=== PATIENT | female | born 1955 | race Caucasian/White ===

== ENCOUNTER → 2016-05-14 | Outpatient (CLI) | payer BC ==
[~2016-05-14] MED LIST: ALBUAER2 INH; AMLO-110 PO; ATOR-22 PO; BIOT1CAP8 PO; CALC600T9 PO; CLTP PO; GLUCTAB7 PO; LEVA45AE INH; LOSA100T26 PO; MULTTAB58 PO; NAPR-998 PO; NAPR1TAB9 PO; SYMBICORT; SYMIN160 INH; [UNRECOGNIZED DRUG - CODE] NAE
--- NOTE | 2016-05-15 17:13 | MAMMOGRAPHY REPORT ---
BILATERAL DIGITAL SCREENING MAMMOGRAM TOMOSYNTHESIS WITH CAD: 05/14/2016 CLINICAL HISTORY: Routine screening. Patient has no complaints. TECHNIQUE: Breast tomosynthesis in addition to standard 2D mammography was performed. Current study was also evaluated with a Computer Aided Detection (CAD) system. COMPARISON: Comparison is made to exams dated: 05/12/2015 mammogram, 11/09/2009 mammogram, 05/10/2014 kristen mogram, 05/23/2010 ultrasound, 11/09/2009 ultrasound - [facility], and 11/14/2008. BREAST COMPOSITION: There are scattered areas of fibroglandular density in both breasts. FINDINGS: There is a 7 mm mass with possible associated faint microcalcification in the 12:00 anter ior left breast, for which additional spot magnification views and targeted ultrasound are recommend ed. There is a stable metallic biopsy marker in the upper outer anterior right breast. Stable nodularit y in the lower inner quadrant of the right breast. No other suspicious mass, architectural distorti on or cluster of microcalcifications is seen. IMPRESSION: ACR BI-RADS CATEGORY 0: INCOMPLETE EVALUATION: NEED ADDITIONAL IMAGING EVALUATION The 7 mm mass with possible associated microcalcification in the 12:00 left breast needs additional evaluation. The patient will be called to schedule an appointment. Approximately 10% of breast cancers are not detected with mammography. A negative mammographic repor t should not delay biopsy if a clinically suggestive mass is present. Waleska Mancini M.D. ay/:05/15/2016 15:51:05 Accounting Reconciliation Clerk: Nani GUTIERREZ(Mc)(Kera), [facility] letter sent: Addl Imaging 0 BI-RADS Code: ACR BI-RADS Category 0: Incomplete Evaluation: Need Additional Imaging Evaluation
== END | disposition home or self-care (01) ==
LOC: C.MAMM 09:36
PROVIDERS: ATTEND Internal Medicine Pulmonary Disease
DX: Z12.31 Encounter for screening mammogram for malignant neoplasm of breast (principal); N63 Unspecified lump in breast

== ENCOUNTER → 2016-05-29 | Outpatient (CLI) | payer BC ==
--- NOTE | 2016-05-29 15:34 | MAMMOGRAPHY REPORT ---
UNILATERAL LEFT DIGITAL DIAGNOSTIC MAMMOGRAM AND TARGETED LEFT ULTRASOUND: 05/29/2016 CLINICAL HISTORY: 61-year-old woman called back from screening mammography for a 7 mm mass with poss ible associated faint microcalcifications in the 12:00 left breast. TECHNIQUE: Spot magnification left CC and ML views were obtained. COMPARISON: Comparison is made to exams dated: 05/14/2016 mammogram, 05/12/2015 mammogram, and 11/09/2009 mammogram - [facility]. BREAST COMPOSITION: There are scattered areas of fibroglandular density in the left breast. FINDINGS: On the spot magnification views of the left breast, there is persistence of a lobulated 3 .5 x 6.4 x 6.8 mm mass. The possible faint associated microcalcifications are less conspicuous on t he spot magnification views and could represent milk of calcium within a cyst. Further characteriza tion with ultrasound was performed. There is no associated architectural distortion. No other susp icious mass or suspicious microcalcifications are identified. Real-time high-resolution sonographic evaluation was performed in the 11:00 through 1:00 axes of the left breast. In the 11:30 breast, 2 cm from the nipple, there is a mixed anechoic and isoechoic ma ss, subtly representing an intraductal or intracystic mass. Total measurements of the solid and cys tic component measured 3.4 x 1.8 x 3.7 mm and this is thought to correlate with the mammographic mas s. It is indeterminate, warranting further evaluation with tissue sampling. Incidental note is mad e of an anechoic benign simple cyst in the 11:00 left breast, 3 cm from the nipple, measuring 3.7 mm . IMPRESSION: ACR BI-RADS CATEGORY 4: SUSPICIOUS, TARGETED ULTRASOUND ACR BI-RADS CATEGORY 4: SUSPICI OUS 1. Ultrasound guided core biopsy is recommended for an indeterminate solid and cystic 3.7 mm mass i n the 11:30 left breast, 2 cm from the nipple, that is thought to correlate with the recently descri bed mammographic mass. The possible associated microcalcifications are less conspicuous on the spot magnification views and could represent milk of calcium within the cystic component. These results and recommendations were discussed with the patient at the time of the exam. She tent atively scheduled the left breast ultrasound guided core biopsy prior to leaving our department. Approximately 10% of breast cancers are not detected with mammography. A negative mammographic repor t should not delay biopsy if a clinically suggestive mass is present. Waleska Mancini M.D. ay/:05/29/2016 14:33:36 Revenue Specialist: Henrietta LU)(Kera), [facility] letter sent: Abnormal 4/5 BI-RADS Code: ACR BI-RADS Category 4: Suspicious Ultrasound BI-RADS: ACR BI-RADS Category 4: Suspic ious
== END | disposition home or self-care (01) ==
LOC: C.MAMM 13:21
PROVIDERS: ATTEND Internal Medicine Pulmonary Disease
DX: N63 Unspecified lump in breast (principal)

== ENCOUNTER → 2016-06-07 | Outpatient (CLI) | payer BC ==
--- NOTE | 2016-06-07 09:30 | Discharge Instructions ---
Discharge Instructions Procedure Procedure Date: Jun 07, 2016. Reason for visit: Left Mass. Discharge Discharge Date: Jun 07, 2016. Discharge Diagnosis: status post breast biopsy Instructions Activity Recommendations: Additional Limitations (see below) Return to School/Work: no limitations Recommended Home Diet: No Limitations Provider Instructions: ACTIVITY RECOMMENDATIONS: * No lifting, pushing, pulling or exercising the affected side for three days. RETURN TO SCHOOL/WORK: * You may return to work/school after the procedure, but do not perform any strenuous activities for 24 to 48 hours. MEDICATIONS: * Tylenol (two 325 mg) every four to six hours if needed for mild pain (if not allergic to Tylenol). DIET: * Resume previous diet. SPECIAL CARE INSTRUCTIONS: * Keep biopsy site dry for 24 hours. May shower after 24 hours, but do not soak (bathe) incision. * May remove Tegaderm (plastic patch) tomorrow AFTER showering. * Leave the steri-strips on for one week. Allow the steri-strips to fall off by themselves. If not off after one week, you may remove them. You may place a Bandaid crosswise over the strips, if desired. * Apply ice 10 minutes on and 10 minutes off as needed. * Wear a bra at bedtime to sleep more comfortably for 2-3 days. * Your referring physician should have the results after approximately 5 to 7 business days. * Call for unusual bleeding, fever, drainage, etc or if you have any questions call during normal business hours or after hours call Dr Campuzano, [phone]. FOLLOW UP VISIT: Follow-up with Referring Physician as scheduled. Allergies Coded Allergies: No Known Allergies (Verified , NO, 06/12/11) Mono Mathews Recommendations: Call your doctor if: * Temperature above 101 degrees * Pain not relieved by pain medicine ordered * There is increased drainage or redness from any incision * You have any unanswered questions or concerns. Your Doctors Instructions noted above were prepared by provider Aurea Campuzano. Patient Signature Section: Patient Instructions Signature Page Claudette Mcmahon Patient (or Guardian) Signature/Date: I have read and understand the instructions given to me by my caregivers. Caregiver/RN/Doctor Signature/Date: The above-named patient and/or guardian has received patient instructions on this date. + Original Patient Signature Page (only) stays with chart. Please make copy for patient.
--- NOTE | 2016-06-10 13:48 | MAMMOGRAPHY REPORT ---
ULTRASOUND GUIDED BIOPSY LEFT BREAST: 06/07/2016 CLINICAL HISTORY: Left 11:30 breast mass. PATIENT CONSENT: The procedure, risks and benefits were discussed with the patient and informed writ ten consent was obtained. A timeout was performed immediately prior to the procedure. PROCEDURE DESCRIPTION: Preprocedural ultrasound demonstrates a small benign 3 mm cyst in the left breast at 11:30, 2 cm fro m the nipple, as well as a persistent benign cyst in the left breast at 11:30, 3 cm from the nipple. The mixed cystic and solid mass in the left breast at 12:00, 2 cm from the nipple persists (previo usly labeled left breast 11:30, 2 cm from the nipple). With ultrasound guidance, aseptic technique, and lidocaine as the local anesthetic (1% lidocaine to anesthetize the skin and 1% lidocaine with epinephrine to anesthetize the deeper tissues), an attemp t was made to aspirate the mass, however, it did not completely aspirate therefore the decision was made to biopsy the residual hypoechoic component. With ultrasound guidance, aseptic technique, and lidocaine as the local anesthetic (1% lidocaine to anesthetize the skin and 1% lidocaine with epinephrine to anesthetize the deeper tissues), the mass of concern in the left breast at 12:00 was sampled 3 times with a 14-gauge Achieve biopsy needle. D irect pressure was applied to the site immediately post procedure and hemostasis was achieved. Imme diately thereafter, with ultrasound guidance, aseptic technique, and lidocaine as the local anesthet ic, a metallic localizer clip was placed centrally in the mass. Direct pressure was applied to the site immediately post procedure and hemostasis was achieved. Pos tprocedure unilateral mammograms were performed to confirm placement of the clip in the expected loc ation of the breast mass. The patient tolerated the procedure without complication. She was given wound care instructions. The specimens were sent to pathology for analysis. COMPARISON: Comparison is made to exams dated: 05/29/2016 ultrasound, 05/29/2016 mammogram, 05/14/2016 mammogram, 05/12/2015 mammogram, 05/10/2014 mammogram, and 05/23/2010 mammogram - [facility] [address] [place] oshea. IMPRESSION: ULTRASOUND GUIDED BIOPSY Ultrasound guided core needle biopsy of the left 12:00 breast mass, with clip placement. The patien t will receive pathology results from her referring provider. Aurea Campuzano M.D. ah/:06/07/2016 09:39:07 Instructor Modeling: Chanda LU)(M), [facility]
--- NOTE | 2016-06-10 13:48 | MAMMOGRAPHY REPORT ---
UNILATERAL LEFT DIGITAL DIAGNOSTIC MAMMOGRAM: 06/07/2016 CLINICAL HISTORY: Status post ultrasound guided biopsy of the left 12:00 breast mass. TECHNIQUE: Postprocedural left CC and MLO views were obtained. COMPARISON: Comparison is made to exams dated: 05/29/2016 mammogram, 05/14/2016 mammogram, 05/12/2015 ma mmogram, and 05/10/2014 mammogram - [facility]. BREAST COMPOSITION: There are scattered areas of fibroglandular density in the left breast. FINDINGS: A new biopsy marker clip is seen within the left breast status post ultrasound-guided bio psy of the left 12 o'clock breast mass. The biopsy clip is located lateral and anterior to the prev iously described mammographic mass indicating that the biopsied mass does not correlate with the kristen mographic mass. However, a benign cyst was seen in the left breast at 11:30, 3 cm from the nipple, medial to the biopsied mass, which is approximately the same size and shape of the mammographic mass , and likely corresponds with the mammographic mass. Recommend short interval follow-up in 3 months to confirm stability. IMPRESSION: ACR-BI-RADS CATEGORY 3: PROBABLY BENIGN The biopsied mass does not correlate with the initial mammographic mass. However, a benign-appearin g cyst was seen in the left breast at 11:30, which likely corresponds with the mammographic mass. R ecommend follow-up diagnostic mammograms and ultrasound of the left breast in 3 months to reevaluate . The patient was verbally notified of the results. Approximately 10% of breast cancers are not detected with mammography. A negative mammographic repor t should not delay biopsy if a clinically suggestive mass is present. Aurea Campuzano M.D. ah/:06/07/2016 09:59:31 Certified Peer Specialist: Chanda GUTIERREZ(Mc)(Kera), [facility] BI-RADS Code: ACR-BI-RADS Category 3: Probably Benign
== END | disposition home or self-care (01) ==
LOC: C.MAMM 08:53
PROVIDERS: ATTEND Internal Medicine Pulmonary Disease
DX: N63 Unspecified lump in breast (principal)

== ENCOUNTER → 2016-08-05 | Outpatient (CLI) | payer BC ==
[~2016-08-05] MED LIST changes: -LOSA100T26 PO; +LOSA100T33 PO
[2016-08-05 14:41] LABS: HEMATOCRIT 44.2 % (37-47); MEAN CELL VOLUME 91.1 fL (80-100); MEAN CORPUSCULAR HEMOGLOBIN 29.5 pg (25-34); MEAN CORPUSCULAR HGB CONC 32.4 g/dl (32-36); MEAN PLATELET VOLUME 12.3 fL (7.4-10.4); PLATELET COUNT 237 K/uL (130-400); RED BLOOD COUNT 4.85 M/uL (4.2-5.4); WHITE BLOOD COUNT 9.44 K/uL (4.8-10.8)
[2016-08-05 15:02] LABS: ALB/GLOB RATIO 1.1 (0.9-2); ALT/SGPT 30 U/L (12-78); AST/SGOT 18 U/L (15-37); BLOOD UREA NITROGEN 13 mg/dl (7-18); BUN/CREATININE RATIO 17.4 (10-20); CALCIUM 9.4 mg/dl (8.5-10.1); CARBON DIOXIDE 33 mmol/L (21-32); CHLORIDE 103 mmol/L (98-107); CREATININE 0.77 mg/dl (0.60-1.20); GLUCOSE 101 mg/dl (70-99); HEPATITIS B AB NEG; POTASSIUM 3.4 mmol/L (3.5-5.1); SODIUM 142 mmol/L (136-145)
[2016-08-05 15:03] LABS: ALKALINE PHOSPHATASE 88 U/L (45-117)
== END | disposition home or self-care (01) ==
LOC: C.LAB1850 12:43
PROVIDERS: ATTEND Internal Medicine
DX: Z00.00 Encounter for general adult medical examination without abnormal findings (principal); Z11.59 Encounter for screening for other viral diseases; Z01.84 Encounter for antibody response examination; E78.5 Hyperlipidemia, unspecified

== ENCOUNTER → 2016-09-09 | Outpatient (CLI) | payer BC ==
[~2016-09-09] MED LIST changes: -ALBUAER2 INH; -CLTP PO; -SYMBICORT
--- NOTE | 2016-09-09 16:02 | MAMMOGRAPHY REPORT ---
UNILATERAL LEFT DIGITAL DIAGNOSTIC MAMMOGRAM TOMOSYNTHESIS WITH CAD AND TARGETED LEFT ULTRASOUND: 09/09 CLINICAL HISTORY: 61-year-old woman with a history of recent benign ultrasound-guided core needle bio psy in the 12:00 left breast. The biopsied mass did not correlate with the focal asymmetry in the up per inner quadrant of the left breast and a short three-month follow-up was recommended. TECHNIQUE: Left CC and MLO 2-D digital and tomosynthesis images were obtained. Additional left CC an d MLO tomosynthesis images were obtained after placement of a skin BB marker. Current study was also evaluated with a Computer Aided Detection (CAD) system. COMPARISON: Comparison is made to exams dated: 06/07/2016 mammogram, 06/07/2016 ultrasound biopsy, 2016 ultrasound, 05/14/2016 mammogram, 05/12/2015 mammogram, and 05/10/2014 mammogram - [facility]. BREAST COMPOSITION: The tissue of the left breast is almost entirely fatty. FINDINGS: There is a stable ribbon shaped metallic biopsy marker in the 12:00 to 12:30 anterior left breast, denoting the site of prior benign biopsy. There is a stable circumscribed lobulated, 4.9 x 4.0 x 5.8 mm mass in the 11:00 anterior left breast. No associated architectural distortion or clust er microcalcification. No other new suspicious masses, suspicious microcalcifications or focal area of architectural distortion is identified. Targeted ultrasound was performed in the 11:00 to 12:00 left breast to evaluate for the persistent ma mmographic mass, in which the prior biopsy did not correlate. In the 11:00 axis, 3 cm from the nippl e, there is an oval parallel circumscribed anechoic benign-appearing cyst measuring 3.9 x 1.9 x 3.3 m m. To confirm mammographicsonographic correlation, a skin BB was placed above the sonographic findi ng and repeat left CC and MLO tomosynthesis images were performed. The repeat views demonstrate alig nment of the BB marker with the mammographic mass, therefore confirming mammographicsonographic bebeto elation. IMPRESSION: ACR-BI-RADS CATEGORY 3: PROBABLY BENIGN, TARGETED ULTRASOUND ACR-BI-RADS CATEGORY 3: PRO BABLY BENIGN 1. Stable postbiopsy changes in the 12:00 left breast. 2. A persistent benign-appearing circumscribed mass in the 11:00 left breast correlates with a cyst on ultrasound. Options of ultrasound-guided cyst aspiration with post-aspiration mammography versus another follow-up were provided to the patient and we will opt to follow this suspected benign cyst i n 3 more months. These results and recommendations were discussed with the patient at the time of the exam. Approximately 10% of breast cancers are not detected with mammography. A negative mammographic report should not delay biopsy if a clinically suggestive mass is present. Waleska Mancini M.D. ay/:09/09/2016 13:45:59 Fabrication Mig Welder: Melissa GUTIERREZ(Mc)(Kera), [facility] letter sent: Follow Up Recommended 3 BI-RADS Code: ACR-BI-RADS Category 3: Probably Benign Ultrasound BI-RADS: ACR-BI-RADS Category 3: Pr obably Benign
== END | disposition home or self-care (01) ==
LOC: C.MAMM 09:14
PROVIDERS: ATTEND Physician Assistant
DX: N63 Unspecified lump in breast (principal)

== ENCOUNTER → 2016-09-17 | Day surgery (SDC) | payer BC ==
[2016-09-05 11:48] VITALS: Ht 168.9 cm; Wt 84.1 kg
[~2016-09-17] VITALS: Ht 168.9 cm; Wt 84.1 kg
[~2016-09-17] MED LIST changes: +LIDOCAINE HCL 2% 2 ML VIAL (20MG/ML) ONE; +PROPOFOL IV EMULSION 10 MG/ML 20 ML VIAL IV ONE
--- NOTE | 2016-09-17 10:23 | Endo History and Physical ---
History & Physical Date of Service: Sep 17, 2016. Chief Complaint: SCREENING Referring Physician: PARTH CANO PA-C History of Present Illness 61 yo CF who presents for screening colonoscopy. Past Surgical History Hx Cardiac Surgery: No Hx Internal Defibrillator: No Hx Pacemaker: No Hx Abdominal Surgery: Yes (PARTIAL HYSTER) Hx of Implantable Prosthesis: No Hx Post-Op Nausea and Vomiting: Yes (PONV A CHILD - NO PROBLEMS AN ADULT) Hx Cancer Surgery: Yes (BCC REMOVAL) Hx Thoracic Surgery: No Hx Orthopedic: Yes (RT WRIST CYSTECTOMY) Hx Urinary Tract Surgery: No Family History Polyp Social History Smoking Status: Current Every Day Smoker Hx Substance Use: No Hx Alcohol Use: Yes (2 GLASSES WINE/DAY) Allergies Coded Allergies: No Known Allergies (Verified , 09/17/16) Current Medications Reported Home Medications Medications Dose Route/Sig Max Daily Dose Days Date Category Dose Instructions Zicam Cold Remedy (Homeopathic Products) 1 Spr Spr 2 Sprays MELANIE BID PRN 09/05/16 Reported Multivitamin (Multiple Vitamin) 1 Tab Tab 1 Tab PO QAM 09/05/16 Reported Calcium + D (Calcium Carbonate-Vitamin D) 1 Tab Tab 1 Tab PO QAM 09/05/16 Reported Glucosamine Chondroitin (Qyzticxfkqb-Fbmqdbkzkni-Ihf C-) 1 Tab Tab 1 Tab PO QAM 09/05/16 Reported Biotin 1 Mg Cap 1 Tab PO QAM 09/05/16 Reported Levalbuterol Tartrate Hfa (Levalbuterol Tartrate) 45 Mcg/Act Aer 2 Puffs INH Q4H PRN 09/05/16 Reported Symbicort 160/4.5 Inhaler (Budesonide/Formoterol Fumarate) Aero 2 Puffs INH BID 09/05/16 Reported Norvasc (Amlodipine Besylate) 5 Mg Tab 5 Mg PO QAM 09/05/16 Reported Losartan Potassium/Hydroc (Losartan Potassium & Hydrochlo) 1 Tab Tab 1 Tab PO QAM 09/05/16 Reported 100MG/25MG Lipitor (Atorvastatin Calcium) 20 Mg Tab 20 Mg PO HS 09/05/16 Reported Aleve Pm 220-25 mg (Naproxen Sodium-Diphenhydramin) 1 Tab Tab 1 Tab PO HS 09/05/16 Reported Aleve (Naproxen) 220 Mg Tab 220 Mg PO QAM 09/05/16 Reported Vital Signs Weight (Kilograms): 84.09 Height (Feet): 5 Height (Inches): 6.5 Date Time Temp Pulse Resp B/P (MAP) Pulse Ox O2 Delivery O2 Flow Rate FiO2 09/17/16 09:50 37.1 77 20 139/76 (97) 95 Room Air Physical Exam General Appearance: WD/WN, no apparent distress Respiratory/Chest: Auscultation: breath sounds normal Cardiovascular: Heart Auscultation: RRR Abdomen: Bowel Sounds: normal Inspection & Palpation: soft, non-distended, no tenderness, guarding & rebound Assessment and Plan Assessment: 61 yo CF who presents for screening colonoscopy. Plan: Proceed with colonoscopy.
--- NOTE | 2016-09-17 10:43 | Discharge Instructions ---
Endoscopy Patient Instructions Date / Procedure(s) Performed Sep 17, 2016. Colonoscopy Allergy Information Coded Allergies: No Known Allergies (Verified , 09/17/16) Discharge Date / Findings Sep 17, 2016. Colon polyp Diverticulosis Internal hemorrhoids Provider Instructions Activity Restrictions - No exercising or heavy lifting for 24 hours. - Do not drink alcohol the day of the procedure. - Do not drive a car or operate machinery until the day after the procedure. - Do not make any important decisions or sign important papers in 24 hours after the procedure. Following Day: - Return to full activity which may include returning to work/school. Diet Start your diet with liquids and light foods (jello, soup, juice, toast). Then eat your usual diet if not nauseated. Treatment For Common After Affects For mild abdominal pain, bloating, or excessive gas: - Rest - Eat lightly - Lie on right side Follow-Up Information Follow-up with PARTH CANO PA-C as scheduled Anesthesia Information What You Should Know You have had a procedure that required some medicine to reduce anxiety and discomfort. This treatment is called moderate sedation. After receiving the treatment, you may be sleepy, but you will be able to breathe on your own. The effects of the treatment may last for several hours. Follow these instructions along with Activity/Diet recommendations noted above: * Do NOT do anything where dizziness or clumsiness would be dangerous. * Rest quietly at home today, then you can be up and about tomorrow. * Have a responsible person stay with you the rest of today. * You may have had an I.V. today. If so, you may take the dressing off later today. Recommendations Call your doctor if: * Trouble breathing * Continuous vomiting for more than 24 hours * Temperature above 101 degrees * Severe abdominal pain or bloating * Pain not relieved by pain medicine ordered * There is increased drainage or redness from any incision * A large amount of rectal bleeding greater than 2-3 tablespoons. (If you had a polyp/s removed or have hemorrhoids, a small amount of blood - from the rectum is to be expected.) * You have any unanswered questions or concerns. IN THE EVENT OF A SERIOUS EMERGENCY, GO TO THE NEAREST EMERGENCY ROOM Your discharge instructions were prepared by provider James Pyle. Patient Instructions Signature Page Claudette Mcmahon Patient (or Guardian) Signature/Date: I have read and understand the instructions given to me by my caregivers. Caregiver/RN/Doctor Signature/Date: The above-named patient and/or guardian has received patient instructions on this date. + Original Patient Signature Page (only) stays with chart. Please make copy for patient.
--- NOTE | 2016-09-17 10:49 | GI REPORT ---
Procedure Date: 09/17/2016 10:07 AM Procedure: Colonoscopy Indications: Screening for colorectal malignant neoplasm Medicines: Monitored Anesthesia Care Complications: No immediate complications. Estimated Blood Loss: Estimated blood loss: none. Procedure: Pre-Anesthesia Assessment: - Prior to the procedure, a History and Physical was performed, and patient medications and allergies were reviewed. The patient's tolerance of previous anesthesia was also reviewed. The risks and benefits of the procedure and the sedation options and risks were discussed with the patient. All questions were answered, and informed consent was obtained. Prior Anticoagulants: The patient has taken no previous anticoagulant or antiplatelet agents. ASA Grade Assessment: II - A patient with mild systemic disease. After reviewing the risks and benefits, the patient was deemed in satisfactory condition to undergo the procedure. After I obtained informed consent, the scope was passed under direct vision. Throughout the procedure, the patient's blood pressure, pulse, and oxygen saturations were monitored continuously. The scope was introduced through the anus and advanced to the terminal ileum. The colonoscopy was performed without difficulty. The patient tolerated the procedure well. The quality of the bowel preparation was good. The terminal ileum, ileocecal valve, appendiceal orifice, and rectum were photographed. Findings: A 5 mm polyp was found in the sigmoid colon. The polyp was sessile. The polyp was removed with a hot snare. Resection and retrieval were complete. Multiple small-mouthed diverticula were found in the sigmoid colon. Non-bleeding internal hemorrhoids were found during retroflexion. The hemorrhoids were small. Impression: - One 5 mm polyp in the sigmoid colon, removed with a hot snare. Resected and retrieved. - Diverticulosis in the sigmoid colon. - Non-bleeding internal hemorrhoids. Recommendation: - Resume previous diet. - Continue present medications. - Repeat colonoscopy for surveillance based on pathology results. - Return to primary care physician as previously scheduled. James Pyle DO 09/17/2016 10:49:14 AM This report has been signed electronically. Note Initiated On: 09/17/2016 10:07 AM I attest to the content of the Intraoperative Record and orders documented therein, exceptions below
[2016-09-17 11:15] VITALS: BP 123/83; PULSE 69; O2SAT 98
--- NOTE | 2016-09-17 13:48 | Anesthesiology Progress Note ---
Anesthesia Post Op Note Date & Time Sep 17, 2016 at 13:48 Vital Signs Pain Intensity: 0 Vital Signs Past 12 Hours Date Time Temp Pulse Resp B/P (MAP) Pulse Ox O2 Delivery O2 Flow Rate FiO2 09/17/16 11:15 69 20 123/83 (96) 98 Room Air 09/17/16 11:00 70 20 117/89 (98) 97 Room Air 09/17/16 10:46 36.9 69 20 108/68 (81) 97 Room Air 09/17/16 09:50 37.1 77 20 139/76 (97) 95 Room Air Notes Mental Status: alert / awake / arousable, participated in evaluation Pt Amnestic to Procedure: Yes Nausea / Vomiting: adequately controlled Pain: adequately controlled Airway Patency, RR, SpO2: stable & adequate BP & HR: stable & adequate Hydration State: stable & adequate Anesthetic Complications: no major complications apparent
== END | disposition home or self-care (01) ==
LOC: C.GI 09:06
PROVIDERS: ATTEND Internal Medicine
DX: Z12.11 Encounter for screening for malignant neoplasm of colon (principal); D12.5 Benign neoplasm of sigmoid colon; K57.30 Diverticulosis of large intestine without perforation or abscess without bleeding; K64.8 Other hemorrhoids; F17.210 Nicotine dependence, cigarettes, uncomplicated; Z83.71 Family history of colonic polyps; Z79.899 Other long term (current) drug therapy

== ENCOUNTER 2016-12-13 17:36 | Emergency (ER) | payer BC ==
[~2016-12-13] VITALS: Ht 167.6 cm; Wt 82.4 kg
[~2016-12-13 17:36] MED LIST changes: -LIDOCAINE HCL 2% 2 ML VIAL (20MG/ML) ONE; +LOSA100T26 PO; -LOSA100T33 PO; -PROPOFOL IV EMULSION 10 MG/ML 20 ML VIAL IV ONE
[2016-12-13 17:56] VITALS: TEMP 36.9; Ht 167.6 cm; Wt 82.4 kg
--- NOTE | 2016-12-13 18:44 | DIAGNOSTIC IMAGING REPORT ---
LEFT WRIST W/NAVICULAR MIN 3 VIEWS CLINICAL HISTORY: LEFT, EVAL FX, FALL ON EXTENDED L WRIST trauma COMPARISON: None. DISCUSSION: No evidence for acute bony pathology. Small old avulsion from the ulnar styloid. Degenerative change of the first carpometacarpal joint. Mild degenerative change of the intercarpal region. No acute bony abnormality. Mild soft tissue edema. IMPRESSION: Findings consistent with degenerative change and old trauma. Mild soft tissue edema. No acute bony abnormality. The above report was generated using voice recognition software. It may contain grammatical, syntax or spelling errors. Electronically signed by: Jaswant Gaitan M.D. 12/13/2016 6:43 PM Dictated Date/Time: 12/13/2016 6:41 PM
--- NOTE | 2016-12-13 19:41 | EMERGENCY ROOM VISIT NOTE ---
ED Visit Note First contact with patient: 18:01 CHIEF COMPLAINT: Left wrist injury this afternoon HISTORY OF PRESENT ILLNESS: Patient is a [id number]-[id number] 61-year-old white female who presents emergency department for evaluation of left wrist pain after a fall hours ago. She tripped and fell, landing on her extended left wrist. As the day has progressed, she has noted progressively worsening pain, swelling and stiffness in the left wrist, primarily the radial aspect. She was unable to take any medications, nor ice the wrist. She denies any numbness, tingling or weakness. She reports a remote fracture to the left wrist. She rates her discomfort a 4/10. REVIEW OF SYSTEMS: Review of systems as per HPI. All other systems reviewed were negative. At least 6 systems reviewed. PMH: Electronic medical records are reviewed and summarized as above/below. See Problem List. SOCIAL HISTORY: Patient lives at home by herself. She is employed. Smokes 2 pack of cigarettes per week, drinks 2 alcohol beverages daily. PHYSICAL EXAM: Vital Signs: Reviewed Nurse's notes. CONSTITUTIONAL: Patient is a well-appearing 61-year-old white female who is awake and alert and in no acute distress. MUSCULOSKELETAL: Examination of the left wrist note: Soft tissue swelling, and some ecchymosis into the thenar eminence of the hand. She has some tenderness to palpation over the dorsal, radial and volar aspect of the distal radius. She does have anatomic snuffbox tenderness. No pain over the distal ulna. No pain over the radial head. No elbow joint effusion is palpable and elbow range of motion is full. She can pronate and supinate fully , has discomfort with wrist extension. The skin is intact. Flexion and extension of the fingers is intact. The fingers are warm and well perfused. Distal pulses are EMERGENCY DEPARTMENT COURSE: Ice was applied to the wrist. Left wrist x-rays were obtained, and negative for acute fracture. Mild arthritic changes were noted. Nonetheless, the patient does have snuffbox tenderness with an injury that could be consistent with a scaphoid fracture. Patient was placed in a thumb spica wrist lacer. She would like to follow-up with Dr. Laws. She was encouraged to continue her Aleve as needed for pain, continue to ice and elevate and wear the splint until she can follow-up with orthopedics. Differential diagnoses include fracture, sprain, dislocation, contusion, among others. Medication reconciliation: I attest that I have personally reviewed the patient' s current medication list. Blood pressure screening: Patient was found to have a slightly elevated blood pressure due to circumstances. I do not believe that the patient requires hypertension monitoring. LEFT WRIST W/NAVICULAR MIN 3 VIEWS CLINICAL HISTORY: LEFT, EVAL FX, FALL ON EXTENDED L WRIST trauma COMPARISON: None. DISCUSSION: No evidence for acute bony pathology. Small old avulsion from the ulnar styloid. Degenerative change of the first carpometacarpal joint. Mild degenerative change of the intercarpal region. No acute bony abnormality. Mild soft tissue edema. IMPRESSION: Findings consistent with degenerative change and old trauma. Mild soft tissue edema. No acute bony abnormality. Problem List Medical Problems: (1) Chronic Obstructive Pulmonary Disease, Unspecified Status: Chronic (2) Hyperlipidemia, Unspecified Status: Chronic (3) Hypertension Nos Status: Chronic Current/Historical Medications Scheduled Amlodipine (Norvasc), 5 MG PO QAM Atorvastatin (Lipitor), 20 MG PO HS Biotin (Biotin), 1 TAB PO QAM Budesonide/Formoterol Fumarate (Symbicort 160/4.5 Inhaler ), 2 PUFFS INH BID Calcium Carbonate-Vitamin D (Calcium + D), 1 TAB PO QAM Qluqbhkrpyu-Uaxrgzgktcq-Tts C- (Glucosamine Chondroitin), 1 TAB PO QAM Hctz/Losartan (Hyzaar 12.5MG/100MG), 1 TAB PO QAM Multiple Vitamin (Multivitamin), 1 TAB PO QAM Naproxen (Aleve), 220 MG PO QAM Naproxen Sodium-Diphenhydramin (Aleve Pm 220-25 mg), 1 TAB PO HS Scheduled PRN Homeopathic Products (Zicam Cold Remedy), 2 SPRAYS MELANIE BID PRN for COLD SYMPTOMS Levalbuterol Tartrate (Levalbuterol Tartrate Hfa), 2 PUFFS INH Q4H PRN for SOB/ Wheezing Allergies Coded Allergies: No Known Allergies (Verified , 09/17/16) Vital Signs Date Time Temp Pulse Resp B/P (MAP) Pulse Ox O2 Delivery O2 Flow Rate FiO2 12/13/16 19:51 76 18 152/88 97 12/13/16 17:56 36.9 77 18 150/83 99 Room Air Departure Information Impression Primary Impression: Left wrist injury Referrals Demetri Nelson PA-C (PCP) Ok Laws M.D. Patient Instructions My [facility] Additional Instructions Aleve as discussed. Acetaminophen(Tylenol) may be used for fever or pain. Use 1000mg every six hours as needed. Avoid using more than 3000mg in a 24 hour period. This medication can be taken if you need to drive, work, or perform activities which may be dangerous when taking narcotic pain medication. Ice compresses for 20 minutes at a time four times daily for 2-3 days. Use the wrist lacer as instructed. Rest and elevate your injury. Continue current medications. Return to the ER immediately for any numbness, tingling, severe pain, extreme swelling in the extremity or as needed. Call [facility] on Friday to arrange follow up for your injury.
[2016-12-13 19:51] VITALS: BP 152/88; PULSE 76; O2SAT 97
== END 2016-12-13 19:48 | disposition home or self-care (01) ==
LOC: C.EDB 17:37 → C.EDD 19:48
DX: S69.92XA Unspecified injury of left wrist, hand and finger(s), initial encounter (principal); W19.XXXA Unspecified fall, initial encounter; F17.200 Nicotine dependence, unspecified, uncomplicated; J44.9 Chronic obstructive pulmonary disease, unspecified; E78.5 Hyperlipidemia, unspecified; I10 Essential (primary) hypertension

== ENCOUNTER → 2016-12-16 | Outpatient (CLI) | payer BC ==
--- NOTE | 2016-12-16 15:52 | MAMMOGRAPHY REPORT ---
UNILATERAL LEFT DIGITAL DIAGNOSTIC MAMMOGRAM TOMOSYNTHESIS WITH CAD AND TARGETED LEFT ULTRASOUND: 12/06 CLINICAL HISTORY: 61-year-old woman presents for follow-up of a benign-appearing oval circumscribed m ass in the approximate 12:00 left breast. She has a history of prior benign ultrasound-guided core b iopsy performed in June 2016 for a tiny hypoechoic mass in the 12:00 left breast which yielded benig n pathology but did not correlate with the original mammographic mass in question. TECHNIQUE: Left breast tomosynthesis in addition to standard 2D mammography was performed. Current st udy was also evaluated with a Computer Aided Detection (CAD) system. COMPARISON: Comparison is made to exams dated: 09/09/2016 mammogram, 09/09/2016 ultrasound, 06/07/2016 kristen mogram, 06/07/2016 ultrasound biopsy, 05/29/2016 ultrasound, and 05/29/2016 [facility] - [facility]. BREAST COMPOSITION: There are scattered areas of fibroglandular density in the left breast. FINDINGS: There is a stable ribbon shaped metallic biopsy marker in the upper outer anterior left br east, denoting the site of prior benign ultrasound-guided core biopsy. There is a persistent oval an d circumscribed 5.3 x 2.8 x 6.3 mm low-density mass in the 11:00 to 12:00 anterior left breast, that has been stable on prior exams dating back to 05/14/2016 and likely also the 05/12/2015 mammograms. No other new mass, focal area of architectural distortion, asymmetry or suspicious calcifications are identified in the left breast. Repeat targeted ultrasound was performed in the left breast. In the 11:00 axis, 3 cm from the nipple , there is an oval parallel anechoic benign simple cyst measuring 4.8 x 2.3 x 3.0 mm. This is though t to correlate with the mammographic mass in question. IMPRESSION: ACR-BI-RADS CATEGORY 3: PROBABLY BENIGN, TARGETED ULTRASOUND ACR-BI-RADS CATEGORY 3: PRO BABLY BENIGN There is a persistent oval circumscribed 6 mm mammographic mass in the approximate 11:00 to 12:00 axi s thought to correlate with a benign anechoic simple cyst on ultrasound. Given that the size measure ments of the cysts seen on ultrasound do not exactly correspond to the circumscribed mammographic mas s, but the mass has been stable dating back to May 2016 it is most likely benign. Another follo w-up diagnostic mammogram is recommended in May 2017 with possible repeat targeted ultrasound at that time. The patient will be due for annual bilateral mammography at that time. These results and recommendations were discussed with the patient at the time of the exam. Approximately 10% of breast cancers are not detected with mammography. A negative mammographic report should not delay biopsy if a clinically suggestive mass is present. Waleska Mancini M.D. ay/:12/16/2016 13:39:07 Fiscal Services Manager: Nani LU)(M), [facility] letter sent: Follow Up Recommended 3 BI-RADS Code: ACR-BI-RADS Category 3: Probably Benign Ultrasound BI-RADS: ACR-BI-RADS Category 3: Pr obably Benign
== END | disposition home or self-care (01) ==
LOC: C.MAMM 09:35
PROVIDERS: ATTEND Internal Medicine
DX: N63 Unspecified lump in breast (principal)

== ENCOUNTER → 2017-02-13 | Outpatient (CLI) | payer BC ==
[~2017-02-13] MED LIST changes: -LOSA100T26 PO; +LOSA100T33 PO
[2017-02-13 13:51] LABS: BLOOD UREA NITROGEN 10 mg/dl (7-18); BUN/CREATININE RATIO 13.2 (10-20); CALCIUM 9.2 mg/dl (8.5-10.1); CARBON DIOXIDE 31 mmol/L (21-32); CHLORIDE 104 mmol/L (98-107); CREATININE 0.76 mg/dl (0.60-1.20); GLUCOSE 97 mg/dl (70-99); POTASSIUM 3.5 mmol/L (3.5-5.1); SODIUM 140 mmol/L (136-145)
[2017-02-13 13:57] LABS: ESTIMATED AVERAGE GLUCOSE 126 mg/dl; HA1C FLAG Normal (Normal)
== END | disposition home or self-care (01) ==
LOC: C.LAB1850 12:24
PROVIDERS: ATTEND Internal Medicine
DX: R73.01 Impaired fasting glucose (principal); E87.6 Hypokalemia

== ENCOUNTER → 2017-04-11 | Outpatient (CLI) | payer BC ==
--- NOTE | 2017-04-11 14:06 | EXERCISE STRESS ECHO ---
*NOTICE TO RECEIVING [employer]Y This information is strictly Confidential and protected under [place] law. [place] law prohibits you from making any further disclosure of this information unless further disclosure is expressly permitted by the written consent of the person to whom it pertains or is authorized by law. A general authorization for the release of medical or other information is not sufficient for this purpose. Hospital accepts no responsibility if the information is made available to any other person, INCLUDING THE PATIENT. Interpretation Summary * Name: TELMA OSUNA Study Date: 04/11/2017 10:33 AM BP: 135/76 mmHg * Patient Location: [facility] HR: 87 * : 1955 (M/d/yyyy) Gender: Female Height: 66 in * Age: 62 yrs Ethnicity: [place] Weight: 185 lb * Ordering Physician: Demetri Nelson * Referring Physician: Demetri Nelson PA-C * Performed By: Awa Hamm RDCS * * Reason For Study: Chest pain * BSA: 1.9 m2 * -- Conclusions -- * Left ventricular systolic function is normal. * Grade I diastolic dysfunction, (abnormal relaxation pattern). * Normal exercise echocardiogram without evidence of inducible ischemia. * There was a hypertensive response to exercise Procedure Details * ECHOEX, CPT #60114 * ECHO DOPPLER, CPT #[id number] * ECHO COLOR FLOW, CPT #[id number] Left Ventricular Findings with Stress * Normal exercise echocardiogram without evidence of inducible ischemia. There was a hypertensive response to exercise Left Ventricle * The left ventricle is normal in size. * There is normal left ventricular wall thickness. * Ejection Fraction = 65-70%. * Left ventricular systolic function is normal. * Grade I diastolic dysfunction, (abnormal relaxation pattern). * Resting wall motion: Normal. Stress wall motion: Appropriate increase in Left ventricular systolic function and decrease in cavity size. No stress induced segmental wall motion abnormalities. Right Ventricle * The right ventricle is normal in size and function. Atria * The left atrial size is normal. * Right atrial size is normal. Mitral Valve * The mitral valve anatomy is normal. * Significant mitral regurgitation is absent. Tricuspid Valve * The tricuspid valve is not well visualized, but is grossly normal. Aortic Valve * The aortic valve is normal in structure and function. * The aortic valve is trileaflet. * No hemodynamically significant valvular aortic stenosis. * There is no significant aortic regurgitation. Great Vessels * The aortic root is normal size. Pericardium * There is no pericardial effusion. Stress Parameters * Normal baseline electrocardiogram. * Stress ECG: No ST changes. No arrhythmias. * Rest heart rate was '87' BPM. * Rest blood pressure was '135/76' * Maximum heart rate achieved was 148 bpm. * Maximum heart rate was 93 % of maximum age-predicted heart rate. * Maximum blood pressure was '233/83' * Total exercise time was '6:00' * Maximum exercise MET level achieved was '7.00' METS * Maximum treadmill speed was '2.50' miles per hour. * Maximum treadmill elevation was '12.00'% grade. * Exercise was terminated due to 'achieving target heart rate' Left Ventricular Findings with Stress * Baseline EKG was normal There are no significant ST or T-wave changes with exercise or recovery Baseline echocardiographic images demonstrated normal wall motion and function There was normal augmentation of all segments without induction of wall motion abnormalities during stress Garces treadmill score: 6 (low risk) No symptoms reported during the test Hypertensive blood pressure response to exercise MMode 2D Measurements and Calculations IVSd 0.82 cm LVIDd 3.8 cm LVIDs 2.4 cm LVPWd 1.1 cm IVS/LVPW 0.76 FS 36.9 % EDV(Teich) 62.0 ml ESV(Teich) 20.1 ml EF(Teich) 67.6 % EDV(cubed) 55.0 ml ESV(cubed) 13.8 ml EF(cubed) 74.9 % LV mass(C)d 108.4 grams LV mass(C)dI 56.0 grams/m\S\2 SV(Teich) 41.9 ml SI(Teich) 21.7 ml/m\S\2 SV(cubed) 41.2 ml SI(cubed) 21.3 ml/m\S\2 Ao root diam 2.9 cm Ao root area 6.5 cm\S\2 ACS 1.9 cm LA dimension 2.9 cm asc Aorta Diam 2.9 cm LA/Ao 1.0 LVOT diam 2.0 cm LVOT area 3.0 cm\S\2 LVAd ap4 18.3 cm\S\2 LVLd ap4 6.7 cm EDV(MOD-sp4) 41.5 ml EDV(sp4-el) 42.6 ml LVAs ap4 8.8 cm\S\2 LVLs ap4 5.2 cm ESV(MOD-sp4) 12.5 ml ESV(sp4-el) 12.7 ml EF(MOD-sp4) 69.8 % EF(sp4-el) 70.3 % LVAd ap2 21.9 cm\S\2 LVLd ap2 6.5 cm EDV(MOD-sp2) 61.5 ml EDV(sp2-el) 62.3 ml LVAs ap2 10.0 cm\S\2 LVLs ap2 4.9 cm ESV(MOD-sp2) 16.9 ml ESV(sp2-el) 17.2 ml EF(MOD-sp2) 72.6 % EF(sp2-el) 72.3 % LVLd %diff -1.79 % EDV(MOD-bp) 50.5 ml LVLs %diff -5.34 % ESV(MOD-bp) 14.9 ml EF(MOD-bp) 70.5 % SV(MOD-sp4) 28.9 ml SI(MOD-sp4) 15.0 ml/m\S\2 SV(MOD-sp2) 44.7 ml SI(MOD-sp2) 23.1 ml/m\S\2 SV(MOD-bp) 35.6 ml SI(MOD-bp) 18.4 ml/m\S\2 SV(sp4-el) 30.0 ml SI(sp4-el) 15.5 ml/m\S\2 SV(sp2-el) 45.1 ml SI(sp2-el) 23.3 ml/m\S\2 Doppler Measurements and Calculations MV E max benjamín 48.0 cm/sec MV A max benjamín 65.8 cm/sec MV E/A 0.73 MV dec time 0.22 sec Ao V2 max 122.0 cm/sec Ao max PG 6.0 mmHg Ao max PG (full) 2.2 mmHg SPIKE(V,A) 2.4 cm\S\2 SPIKE(V,D) 2.4 cm\S\2 LV V1 max PG 3.8 mmHg LV V1 max 97.4 cm/sec PA V2 max 72.5 cm/sec PA max PG 2.1 mmHg PA acc slope 767.7 cm/sec\S\2 PA acc time 0.10 sec PA pr(Accel) 33.2 mmHg
== END | disposition home or self-care (01) ==
LOC: C.CPL 10:23
PROVIDERS: ATTEND Physician Assistant
DX: R07.9 Chest pain, unspecified (principal)

== ENCOUNTER → 2017-04-15 | Outpatient (CLI) | payer BC | END | disposition home or self-care (01) | LOC: C.RC 10:57 | PROVIDERS: ATTEND Physician Assistant | DX: R07.9 Chest pain, unspecified (principal) ==

== ENCOUNTER → 2017-05-16 | Outpatient (CLI) | payer BC | END | disposition home or self-care (01) | LOC: C.LAB1850 09:05 | PROVIDERS: ATTEND Internal Medicine | DX: Z01.84 Encounter for antibody response examination (principal) ==

== ENCOUNTER → 2017-05-16 | Outpatient (CLI) | payer BC ==
--- NOTE | 2017-05-16 15:27 | MAMMOGRAPHY REPORT ---
BILATERAL DIGITAL DIAGNOSTIC MAMMOGRAM TOMOSYNTHESIS WITH CAD AND TARGETED LEFT ULTRASOUND: 05/16/2017 CLINICAL HISTORY: Six-month follow-up of left breast mass. Due for annual mammography of the right b reast. The patient reports no palpable lumps or other complaints. TECHNIQUE: Breast tomosynthesis in addition to standard 2D mammography was performed. Current study was also evaluated with a Computer Aided Detection (CAD) system. Bilateral CC and MLO 2-D and tomosy nthesis images were obtained. COMPARISON: Comparison is made to exams dated: 12/16/2016 ultrasound, 12/16/2016 mammogram, 09/09/2016 m ammogram, 05/14/2016 mammogram, 05/29/2016 mammogram, and 05/29/2016 ultrasound - [facility] enter. BREAST COMPOSITION: There are scattered areas of fibroglandular density in both breasts. FINDINGS: Again noted is a small 6 mm circumscribed mass within the left superior breast at approxi mately 11 to 12:00, best seen on the tomosynthesis images. The mass is stable in size and appearance dating back to at least the May 2016 exam. The remainder of both breasts are stable compared t o prior exams, without suspicious masses, calcifications, or areas of architectural distortion noted. Other bilateral nodularity and scattered bilateral benign-appearing calcifications are stable. Bio psy marker clips are again noted within bilateral upper outer quadrants. Targeted ultrasound was performed of the area of the previously seen left breast mass. In the left b reast at 11:00, 3 cm from the nipple, again noted is an oval anechoic mass which measures 4 x 4 mm. This corresponds with the mammographic mass which has been stable dating back to the May 2016 ex am, and is consistent with a benign simple cyst. IMPRESSION: ACR BI-RADS CATEGORY 2: BENIGN, TARGETED ULTRASOUND ACR BI-RADS CATEGORY 2: BENIGN Small circumscribed 6 mm benign-appearing mass in the left 11 to 12:00 breast is stable mammographica lly dating back to the May 2016 exam, with a corresponding benign simple cyst seen on ultrasound . Given the stability and given the cystic nature on ultrasound, the finding is benign. There is no mammographic or targeted sonographic evidence of malignancy. A 1 year screening mammogram is recomme nded. The patient has been verbally notified of the results. Approximately 10% of breast cancers are not detected with mammography. A negative mammographic report should not delay biopsy if a clinically suggestive mass is present. Aurea Campuzano M.D. ah/:05/16/2017 10:43:26 Agency Legal Counsel: Henrietta LU)(Kera), [facility] letter sent: Normal 1/2 BI-RADS Code: ACR BI-RADS Category 2: Benign Ultrasound BI-RADS: ACR BI-RADS Category 2: Benign
== END | disposition home or self-care (01) ==
LOC: C.MAMM 09:28
PROVIDERS: ATTEND Physician Assistant
DX: N63.22 Unspecified lump in the left breast, upper inner quadrant (principal)

== ENCOUNTER → 2017-06-05 | Outpatient (CLI) | payer BC ==
--- NOTE | 2017-06-05 12:32 | DIAGNOSTIC IMAGING REPORT ---
CHEST 2 VIEWS ROUTINE CLINICAL HISTORY: CHEST PAIN dyspnea COMPARISON STUDY: 04/19/2015 FINDINGS: The bones soft tissues and hemidiaphragms are normal. The cardiomediastinal silhouette is normal. The lungs are clear. The pulmonary vasculature is normal. IMPRESSION: Negative chest. The above report was generated using voice recognition software. It may contain grammatical, syntax or spelling errors. Electronically signed by: Jaswant Gaitan M.D. 06/05/2017 12:31 PM Dictated Date/Time: 06/05/2017 12:30 PM
== END | disposition home or self-care (01) ==
LOC: C.RAD1850 12:12
PROVIDERS: ATTEND Physician Assistant
DX: R07.9 Chest pain, unspecified (principal)